=== PATIENT | female | born 1995 | race African-American/Black ===

== ENCOUNTER 2017-04-06 19:24 | Emergency (ER) | payer OTHER ==
[~2017-04-06] VITALS: Ht 162.6 cm; Wt 68.0 kg
[~2017-04-06 19:24] MED LIST: IBUPROFEN800 M1 PO; MACROBID 100 M100 MG PO; MOXIFLOXACIN H400 M2 PO; PERCOCET 5-3251 EACH PO; PRENATAL VITAM1 EAC4 PO
[2017-04-06] MEDS ORDERED: DEPO-PROVE150 MG/11 IM (19:56)
[2017-04-06 20:19] LABS: ABSOLUTE BASOPHIL COUNT 0 /CUMM (0.0-0.2); ABSOLUTE EOSINOPHIL COUNT 0 /CUMM (0.0-0.7); ABSOLUTE GRANULOCYTE CT 7.3 /CUMM (1.4-6.5); ABSOLUTE LYMPH COUNT 0.6 /CUMM (1.2-3.4); ABSOLUTE MONOCYTE COUNT 0.2 /CUMM (0.10-0.60); BASOPHIL % 0.2 % (0.0-2.0); EOSINOPHIL % 0.3 % (0-5); HEMATOCRIT 37.7 % (37-47); MEAN CORPUSCULAR HGB 24.7 PG (27.0-31.0); MEAN CORPUSCULAR HGB CONC 32.5 G/DL (33.0-37.0); MEAN CORPUSCULAR VOLUME 76.1 FL (81.0-99.0); MEAN PLATELET VOLUME 12.7 FL (7.4-10.4); RBC DISTRIBUTION WIDTH 19.9 % (11.5-14.5); RED BLOOD CELL CT 4.96 /CUMM (4.20-5.40); WHITE BLOOD CELL COUNT 8.1 /CUMM (4.8-10.8)
--- NOTE | 2017-04-06 20:36 | ED GI/GU/ABDOMINAL COMPLAINT ---
History of Present Illness General Chief Complaint: Abdominal Pain/Flank Pain Stated Complaint: ABD PAIN/VOMITING Source: patient, old records Exam Limitations: no limitations Vital Signs & Intake/Output Vital Signs & Intake/Output Vital Signs Date Time Temp Pulse Resp B/P B/P Pulse O2 O2 Flow FiO2 Mean Ox Delivery Rate 04/06 1927 97.1 108 20 134/82 96 Room Air Allergies Coded Allergies: Penicillins (Intermediate, HIVES 07/26/16) azithromycin (Intermediate, HIVES 07/27/16) Reconcile Medications Medroxyprogesterone Acetate (Depo-Provera) 150 MG/ML SYRINGE 1 ML IM Q3M CONTROL (Reported) Triage Note: PT TO ED C/O SHARP EPIGASTRIC PAIN "FOR AN HOUR OR 2" +N/V. DENIES DIARRHEA. CURRENT MENSES. LAST BM WAS YESTERDAY AND "WAS A LITTLE LUMPY" LAST ATE [employer]ICE, BEANS AND SOUR CREAM STEAK AT [place] AT 11 AM OR NOON Triage Nurses Notes Reviewed? yes LMP (ages 10-50): now ? n Is pt currently ? No Onset: Just prior to arrival Duration: hour(s):, constant, continues in ED Timing: recent history Quality/Severity: cramping, moderate, vomiting Location: epigastric Radiation: back Activities at Onset: eating Prior Abdominal Problems: similar symptoms Past Sexual History: Unobtainable at this time Modifying Factors: Worsens With: eating, palpation. Associated Symptoms: abdominal pain, loss of appetite, nausea/vomiting HPI: Seven hours prior to admission patient had lunch at [employer]. 2 hours prior to admission she developed nausea vomiting with crampy epigastric pain radiating to her back mild to moderate in severity worse with palpation eating constant. She denies fever chills diarrhea chest pain cough shortness breath headache dysuria rash bleeding ill contacts. Past History Travel History Traveled to [place] past 21 day No Medical History Any Pertinent Medical History? 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 Yes (aunt with stones removed) Review of Systems Review of Systems Constitutional: Reports: see HPI, malaise. EENTM: Reports: no symptoms. Respiratory: Reports: no symptoms. Cardiovascular: Reports: no symptoms. GI: Reports: see HPI, abdominal pain, nausea, vomiting. Genitourinary: Reports: no symptoms. Musculoskeletal: Reports: no symptoms. Skin: Reports: no symptoms. Neurological/Psychological: Reports: no symptoms. Hematologic/Endocrine: Reports: no symptoms. Immunologic/Allergic: Reports: no symptoms. All Other Systems: Reviewed and Negative Physical Exam Physical Exam General Appearance: well developed/nourished, alert, awake, anxious, moderate distress, obese Head: atraumatic, normal appearance Eyes: Bilateral: normal appearance, PERRL, EOMI, normal inspection. Ears, Nose, Throat, Mouth: hearing grossly normal, moist mucous membrane Neck: normal inspection, supple, full range of motion, normal alignment Respiratory: normal breath sounds, chest non-tender, no respiratory distress, quiet respiration, lungs clear Cardiovascular: regular rate/rhythm, normal peripheral pulses, norml femoral pulses equa Peripheral Pulses: 4+ carotid (R), 4+ carotid (L) Gastrointestinal: normal bowel sounds, soft, non-tender, no organomegaly Back: normal inspection, normal range of motion Extremities: normal range of motion, no ligament instability Neurologic/Psych: no motor/sensory deficits, awake, alert, oriented x 3, normal gait, normal mood/affect, senior it specialist II-XII nml as tested Skin: intact, normal color, warm/dry Core Measures ACS in differential dx? No Severe Sepsis Present: No Septic Shock Present: No Progress Differential Diagnosis: biliary colic, gastritis, UTI/pyelo Plan of Care: Orders Procedure Date/time Status URINE 04/06 1942 Complete URINALYSIS 04/06 1942 Complete LIPASE 04/06 1942 Complete COMPREHENSIVE METABOLIC PANEL 04/06 1942 Complete CBC WITHOUT DIFFERENTIAL 04/06 1942 Complete Laboratory Tests 04/06/172120: Urine Color YEL, Urine Clarity CLDY H, Urine pH 7.0, Ur Specific [place] 1.015, Urine Protein TRACE H, Urine Ketones 40 H, Urine Nitrite POS H, Urine Bilirubin NEG@ICTO, Urine Urobilinogen 1.0, Ur Leukocyte Esterase SMALL H, Ur Microscopic SEDIMENT EXAMINED, Urine RBC 3-5, Urine WBC 15-25 H, Ur Epithelial Cells MOD H, Urine Bacteria PACKD H, Urine Mucus FEW, Urine Hemoglobin LARGE H, Urine Glucose NEG, Urine Test NEGATIVE 04/06/172033: Anion Gap 13, Estimated GFR > 60, BUN/Creatinine Ratio 15.0, Glucose 80, Calcium 9.2, Total Bilirubin 1.5 H, AST 744 H, ALT 997 H, Alkaline Phosphatase 305 H , Total Protein 8.1, Albumin 4.7, Globulin 3.4, Albumin/Globulin Ratio 1.4, Lipase 129 04/06/171956: CBC w Diff NO MAN DIFF REQ, RBC 4.96, MCV 76.1 L, MCH 24.7 L, RDW 19.9 H, MPV 12.7 H, Gran % 89.7 H, Lymphocytes % 7.0 L, Monocytes % 2.8, Eosinophils % 0.3, Basophils % 0.2, Absolute Granulocytes 7.3 H, Absolute Lymphocytes 0.6 L, Absolute Monocytes 0.2, Absolute Eosinophils 0, Absolute Basophils 0, PUBS MCHC 32.5 L Diagnostic Imaging: Viewed by Me: CT Scan. Discussed w/RAD: CT Scan. Radiology Impression: Cholelithiasis without evidence for acute cholecystitis. Otherwise unremarkable study. Initial ED EKG: none Departure Departure Time of Disposition: 2237 Disposition: HOME OR SELF CARE Condition: Stable Clinical Impression Primary Impression: Biliary colic Referrals: ARA BANUELOS,HORACE (PCP/Family) MAITE BANUELOS,RACHAEL Yo Call for surgical follow up Departure Forms: Customer Survey General Discharge Information Prescriptions: Current Visit Scripts Hyoscyamine Sulfate (Levsin-Sl) 1-2 TAB SL Q4P PRN abdominal pain #30 TAB Ondansetron (Zofran Odt) 1 TAB SL TID PRN nausea #10 TAB Ibuprofen 1 TAB PO Q6PRN PRN pain #50 TAB with food
[2017-04-06 20:41] LABS: GRANULOCYTE % 89.7 % (42.2-75.2); PLATELET COUNT 222 /CUMM (130-400)
--- NOTE | 2017-04-06 22:22 | CT SCAN REPORT ---
EXAMINATION: CT ABDOMEN AND PELVIS WITH CONTRAST CLINICAL INFORMATION: Epigastric pain. Nausea and vomiting. COMPARISON: None TECHNIQUE: Multidetector volumetric imaging was performed of the abdomen and pelvis before and after the IV administration of 95 mL of Optiray 320 intravenous contrast. Sagittal and coronal reformatted images were obtained on the technologist's workstation. DLP: 297 mGy-cm FINDINGS: LUNG BASES: The visualized lung bases are unremarkable. LIVER, GALLBLADDER, AND BILIARY TREE: The liver is normal in size, shape, and attenuation. No focal hepatic lesion or biliary ductal dilatation is present. Multiple stones are seen within the gallbladder lumen. No wall thickening or pericholecystic fluid. PANCREAS: Unremarkable. SPLEEN: Unremarkable. ADRENAL GLANDS: Unremarkable. KIDNEYS AND URETERS: The kidneys are normal in size, shape, and attenuation. No hydronephrosis, hydroureter, or calculi seen. No perinephric stranding. BLADDER: The bladder is partially distended with mild circumferential wall thickening. This could be secondary to underdistention. GASTROINTESTINAL TRACT: The stomach and small bowel are unremarkable. No dilated loops of bowel or evidence of obstruction. Normal appendix. No colonic wall thickening or inflammatory changes. ABDOMINAL WALL: No significant hernia is appreciated. LYMPH NODES: Normal. VASCULAR: Unremarkable. PELVIC VISCERA: The uterus and adnexa are unremarkable. OSSEOUS STRUCTURES: No acute or suspicious osseous abnormality. IMPRESSION: Cholelithiasis without evidence for acute cholecystitis. Otherwise unremarkable study.
[2017-04-06] MEDS ORDERED: ZOFRAN ODT4 M1 SL (22:39)
[2017-04-06] MEDS ORDERED: IBUPROFEN600 M1 PO (22:39)
[2017-04-06] MEDS ORDERED: LEVSIN-SL0.125 MG SL (22:39)
[2017-04-06 22:54] VITALS: BP 117/65
== END 2017-04-06 22:56 ==
LOC: ERH 19:24
PROVIDERS: Emergency Medicine
DX: K80.50 Calculus of bile duct without cholangitis or cholecystitis without obstruction (principal)
CPT/HCPCS: 74177; 81001; 81025; J1885; J2405